=== PATIENT | male | born 1955 | race Caucasian/White ===

== ENCOUNTER → 2024-10-07 | Outpatient (CLI) | payer MEDICARE ==
--- NOTE | 2024-10-07 09:11 | CT ---
EXAMINATION TYPE: CT shoulder LT wo con, CT soft tissue neck wo con DATE OF EXAM: 10/07/2024 8:39 AM COMPARISON: None CLINICAL INDICATION: Male, 69 years old with history of Mass neck R22.1, L shoulder pain M25.512; [facility] , Neck mass, left shoulder pain TECHNIQUE: Axial images were obtained of the CT shoulder LT wo con, CT soft tissue neck wo con, Addit ional coronal and sagittal reformatted images and soft tissue and bone window were obtained for revie w. . Contrast used: mL of , (None if empty) Oral contrast used: (None if empty) CT DLP: 561 (accession [id number]), 650 (accession [id number]) mGycm, Automated exposure control for dose reduction was used. FINDINGS: No evidence fracture. Mild degeneration changes of the glenohumeral and acromioclavicular j oints with osteophyte formation and joint space narrowing. Prominent interstitial lung changes seen i n the upper lungs. Intramuscular fat-containing mass correlates of palpable abnormality measuring 7.8 x 5.1 x 5.0 cm loc ated in the left levator scapulae muscle Brain: Visualized portions are grossly unremarkable. Orbits: Unremarkable Sinuses: Grossly unremarkable. Spaces of the neck: Clear and symmetric. Musculoskeletal: No acute osseous pathology. Degenerative disc disease changes of the visualized spin e are present. Lymph nodes: Multiple nonenlarged lymph nodes are seen along both anterior chains of the neck. Vascular structures: Visualized major arteries are patent without evidence of aneurysm. Thoracic Inlet/airway: Airway is patent. The lung apices are clear. Soft tissues/Thyroid: Left thyroid gland nodule measuring up to 14 mm. Other: none. IMPRESSION: 1. Fat-containing mass correlates with the palpable abnormality located within the levator scapulae muscle measuring up to 7.8 cm. No evidence for lymphadenopathy or suspicious mass. 2. No evidence of fracture. 3. Left groin 14 mm nodule. Consider thyroid ultrasound. 4. Interstitial lung markings throughout the lungs correlate for history of prior atypical infection . [facility], , 10/07/2024 9:08 AM
== END | disposition home or self-care (01) ==
LOC: RADCTMAIN 07:38
PROVIDERS: ATTEND Family Medicine
DX: R22.1 Localized swelling, mass and lump, neck (principal); M25.512 Pain in left shoulder; R22.32 Localized swelling, mass and lump, left upper limb
CPT/HCPCS: 70490